=== PATIENT | female | born 1995 | race African-American/Black ===

== ENCOUNTER 2016-06-19 00:07 | Emergency (ER) | payer MEDICAID ==
[~2016-06-19] VITALS: Ht 167.6 cm; Wt 59.0 kg
[2016-06-19] MEDS ORDERED: ONDANSETRON 4MG ODT PO ONE (01:15)
[2016-06-19] MEDS ORDERED: MORPHINE SULFATE 10 MG/ML CPJ IM ONE (01:15)
[2016-06-19] MEDS ORDERED: TETANUS, DIPHTHERIA, PERTUSSIS VAC/PF 0.5ML (>7YR OLD) IM ONE (01:15)
[2016-06-19] MEDS ORDERED: KETOROLAC 60MG/2ML VIAL IM ONE (04:15)
[2016-06-19] MEDS ORDERED: BACITRACIN ZINC OINT UDPKT TOP ONE (04:15)
[2016-06-19 04:41] VITALS: BP 98/62
== END 2016-06-19 05:40 | disposition home or self-care (01) ==
LOC: ER 00:08
DX: S43.402A Unspecified sprain of left shoulder joint, initial encounter (principal); S00.91XA Abrasion of unspecified part of head, initial encounter; F17.200 Nicotine dependence, unspecified, uncomplicated; W22.8XXA Striking against or struck by other objects, initial encounter; Y93.89 Activity, other specified; Y99.9 Unspecified external cause status; Y92.89 Other specified places as the place of occurrence of the external cause; Z23 Encounter for immunization
CPT/HCPCS: 72040; 72070; 73030; 90471; 90715; 96372; 99284; J1885; J2270; Q0162; X7700; Z7610; L0172

== ENCOUNTER 2017-04-15 16:40 | Emergency (ER) | payer MEDICAID ==
[~2017-04-15] VITALS: Ht 167.6 cm; Wt 68.0 kg
[2017-04-15 16:43] VITALS: BP 114/68
== END 2017-04-15 18:25 | disposition left against medical advice (07) ==
LOC: ER 16:40
DX: Z53.21 Procedure and treatment not carried out due to patient leaving prior to being seen by health care provider (principal)